=== PATIENT | male | born 1960 | race Caucasian/White ===

== ENCOUNTER → 2019-01-25 | Outpatient (CLI) | payer OTHER ==
--- NOTE | 2019-01-25 22:26 | XR ---
EXAMINATION TYPE: XR lumbar spine 2 or 3V DATE OF EXAM: 01/25/2019 CLINICAL HISTORY: Low back pain for few months. TECHNIQUE: Frontal and lateral images of the lumbar spine are obtained. COMPARISON: None FINDINGS: There are 5 lumbar type vertebral bodies identified. The lumbar spine shows levoconvex sc oliotic curvature centered at L3 level without evidence of acute fracture or dislocation. There is mu ltilevel spondylolisthesis or subtle retrolisthesis of L1 on L2, L2 on L3, and L3 on L4. Vertebral renee dy heights appear within normal limits. There is mild multilevel disc space narrowing with relative s paring of L4-L5 level. There is more moderate disc space narrowing L5-S1 level. There is mild to mode rate multilevel anterior and lateral spurring in the lumbar spine. More prominent advanced anterior s purring is seen in the thoracolumbar junction. There is facet arthropathy in the lower lumbar levels. Some early vascular calcification of overlying abdominal aorta is noted. IMPRESSION: As above.
== END | disposition home or self-care (01) ==
LOC: RADXRMAIN 17:31
PROVIDERS: ATTEND Family Medicine
DX: M48.061 Spinal stenosis, lumbar region without neurogenic claudication (principal); M48.07 Spinal stenosis, lumbosacral region; M43.16 Spondylolisthesis, lumbar region; M46.96 Unspecified inflammatory spondylopathy, lumbar region; M41.86 Other forms of scoliosis, lumbar region
CPT/HCPCS: 72100

== ENCOUNTER 2019-03-30 07:56 | Emergency (ER) | payer OTHER ==
[2019-03-30 08:01] VITALS: PULSE 64; RESP 18; TEMP 98.4
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
[2019-03-30] MEDS ORDERED: ACET/COD 300 MG/30 MG STARTER PACK 6 TAB BTL PO STA (08:14)
[2019-03-30 08:35] VITALS: BP 174/95
== END 2019-03-30 08:45 | disposition home or self-care (01) ==
LOC: EC 07:56
DX: M54.41 Lumbago with sciatica, right side (principal)
CPT/HCPCS: 99283

== ENCOUNTER 2019-04-01 09:24 | Emergency (ER) | payer OTHER ==
[2019-04-01 09:33] VITALS: BP 176/102; PULSE 90; RESP 18; TEMP 97.4
[2019-04-01] MEDS ORDERED: KETOROLAC 30 MG/ML 1 ML VIAL IM STA (09:54)
[2019-04-01] MEDS ORDERED: methylPREDNISolone SOD SUCCI 125 MG/2 ML VIAL IM ONE (09:54)
--- NOTE | 2019-04-01 10:10 | ED ---
General Adult HPI - General Chief complaint: Back Pain/Injury Stated complaint: Leg Pain/Numbness Time Seen by Provider: 04/01/19 09:34 Source: patient, RN notes reviewed Mode of arrival: ambulatory Limitations: no limitations - History of Present Illness Initial comments: 58-year-old male presents to the emergency department for a chief complaint of right lower extremity pain and numbness. Patient states he has been dealing with right-sided sciatic pain for several months. Patient states that this pain started in his right buttock and shoots all the way down to his right foot. Patient states that he missed his physical therapy twice this week because he had a rash and so a few days ago this pain is worsened. Patient now has paresthesias and tingling in the right lower extremity inferior to the right knee. Patient states his knee felt was really give hour earlier today. Patient denies any bladder or bowel changes. Denies any saddle anesthesia.Patient has no other complaints at this time including shortness of breath, chest pain, abdominal pain, nausea or vomiting, headache, or visual changes. - Related Data Home Medications Medication Instructions Recorded Confirmed Acetaminophen-Codeine 300-30mg 1 tab PO ONCE PRN 04/01/19 04/01/19 [Tylenol w/codeine #3] Ibuprofen [Motrin] 600 mg PO Q8HR PRN 04/01/19 04/01/19 tiZANidine [Zanaflex] 4 mg PO HS PRN 04/01/19 04/01/19 Previous Rx's Medication Instructions Recorded predniSONE 50 mg PO DAILY #5 tablet 04/01/19 Allergies Allergy/AdvReac Type Severity Reaction Status Date / Time No Known Allergies Allergy Verified 04/01/19 10:00 Review of Systems ROS Statement: Those systems with pertinent positive or pertinent negative responses have been documented in the HPI. ROS Other: All systems not noted in ROS Statement are negative. Past Medical History Additional Past Medical History / Comment(s): chronic back pain History of Any Multi-Drug Resistant Organisms: None Reported Past Surgical History: No Surgical Hx Reported Past Psychological History: No Psychological Hx Reported Smoking Status: Never smoker Past Alcohol Use History: None Reported Past Drug Use History: None Reported General Exam Limitations: no limitations General appearance: alert, in no apparent distress Head exam: Present: atraumatic, normocephalic, normal inspection Eye exam: Present: normal appearance, PERRL, EOMI. Absent: scleral icterus, conjunctival injection, periorbital swelling ENT exam: Present: normal exam, mucous membranes moist Neck exam: Present: normal inspection, full ROM. Absent: tenderness, meningismus, lymphadenopathy Respiratory exam: Present: normal lung sounds bilaterally. Absent: respiratory distress, wheezes, rales, rhonchi, stridor Cardiovascular Exam: Present: regular rate, normal rhythm, normal heart sounds. Absent: systolic murmur, diastolic murmur, rubs, gallop, clicks GI/Abdominal exam: Present: soft, normal bowel sounds. Absent: distended, ten derness, guarding, rebound, rigid Extremities exam: Present: full ROM (Full range of motion of the right lower extremity), normal capillary refill (Capillary refill less than 2 seconds, DP pulse 2+ in the right lower extremity and equal to the left lower extremity.), other (Normal color noted in the right leg. Sensation intact in the right lower extremity. Strength 5 out of 5 in lower extremities bilaterally). Absent: tenderness, pedal edema, joint swelling, calf tenderness (Negative Homans sign, no tenderness noted in the right calf) Neurological exam: Present: alert, oriented X3, CN II-XII intact Psychiatric exam: Present: normal affect, normal mood Course Vital Signs 04/01/19 09:27 Temperature 97.4 F L Pulse Rate 90 Respiratory 18 Rate Blood Pressure 176/102 O2 Sat by Pulse 98 Oximetry Medical Decision Making - Medical Decision Making 58-year-old male presents to the emergency department for chief complaint of abdominal pain. States this has been ongoing for quite some time. However it is worsening after he did not do physical therapy this week. States he now has tingling below the right knee. Patient is ambulatory. On exam neuro deficits is intact. Patient has intact sensation and strength is [address] of the lumbar spine does show varying degrees of central canal compromise most marked at L4 to L5. Patient denies any saddle anesthesia or changes in bladder or renee wel function. At this time patient can follow up outpatient hydrated urgent him to follow-up earlier than his scheduled appointment if possible. I discussed returning if he has any saddle anesthesia or bladder or bowel changes. Discussed returning if he is unable to ambulate., patient will be given steroids. Discussed with Hallie. CT lumbar spine does show diffuse degenerative disc disease and hypertrophic spondylosis. There is moderate facet arthropathy. There is multilevel intervertebral for amine all narrowing in varying degrees of central canal compromise most marked at L4-L5. Was not aware repeat vitals were not recorded. Disposition Clinical Impression: Central stenosis of spinal canal, Sciatica Disposition: HOME SELF-CARE Condition: Good Instructions (If sedation given, give patient instructions): Sciatica (ED), Lower Back Exercises (ED) Additional Instructions: Please take steroids as directed. Please follow-up with primary care in 1-2 days. Follow-up with orthopedics as soon as possible. Return here to the emergency department if you having any numbness of your groin or buttock, changes in bladder or bowel movements such as difficulty urinating, or difficulty walking. Prescriptions: predniSONE 50 mg PO DAILY #5 tablet Is patient prescribed a controlled substance at d/c from ED?: No Referrals: Zeb Diaz MD [Primary Care Provider] - 1-2 days Ollie Vega DO [Doctor of Osteopathic Medicine] - 1-2 days Time of Disposition: 11:04
--- NOTE | 2019-04-01 10:27 | CT ---
EXAMINATION TYPE: CT lumbar spine wo con DATE OF EXAM: 04/01/2019 10:18 AM COMPARISON: None. HISTORY: Low back pain CT DLP: 671.9 mGycm Automated exposure control for dose reduction was used. Unenhanced CT of the lumbar spine was performed. Bone and soft tissue window settings are submitted as well as coronal and sagittal reconstructions. FINDINGS: Visualized portions of the lungs are clear. There is mild atheromatous calcification of the visualized arterial tree. Paraspinal soft tissues are otherwise normal. There is a mild levoscoliosis. There is a grade 1 degenerative antegrade listhesis of L4 and L5 and a retrograde listhesis of L2 on L3 and L3 on L4. There is diffuse disc space loss and mild hypertrophi c spondylosis throughout the lumbar spine. There is a vacuum phenomena present at L5-S1. T12-L1, there is mild right-sided intervertebral foraminal narrowing. There is no significant romina sive discopathy. There is mild degenerative changes in the facets. L1-L2: Is disc space loss and hypertrophic spondylosis both anteriorly and posteriorly. Intervertebra l foramina are reasonably well-maintained. There is a diffuse disc displacement effacing the thecal s ac. There is mild hypertrophic change in the facets. L2-L3: The intervertebral foramina are well maintained. There is a broad-based disc protrusion. This hypertrophic changes in the facets. There is moderate central canal stenosis. L3-L4: The intervertebral foramina appear well maintained. There is a diffuse disc displacement. This hypertrophic changes in the facets. There is moderate central canal compromise. L4-L5: There is severe right-sided intervertebral foraminal narrowing and less severe foraminal narro wing on the left. There is a grade 1 degenerative spondylolisthesis of L4 and L5. There is a small ps eudodisc. There are severe degenerative changes in the facets. There is moderate to severe central ca nal compromise. L5-S1: There is disc space loss and a vacuum phenomena present. There is bilateral intervertebral for aminal narrowing. There is no significant compressive discopathy. This hypertrophic changes in the fa cets. IMPRESSION: 1. DIFFUSE DEGENERATIVE DISC DISEASE AND HYPERTROPHIC SPONDYLOSIS. 2. MODERATE FACET ARTHROPATHY MOST MARKED AT L4-5. 3. MULTILEVEL INTERVERTEBRAL FORAMINAL NARROWING. 4. VARYING DEGREES OF CENTRAL CANAL COMPROMISE MOST MARKED AT L4-5.
[2019-04-01] MEDS ORDERED: DIPH,PERTUS(ACELL)TETVAC-LF 0.5 ML VIAL IM ONE (11:26)
== END 2019-04-01 11:15 | disposition home or self-care (01) ==
LOC: EC 09:24
DX: M48.061 Spinal stenosis, lumbar region without neurogenic claudication (principal); M47.896 Other spondylosis, lumbar region; M51.16 Intervertebral disc disorders with radiculopathy, lumbar region; G89.29 Other chronic pain
CPT/HCPCS: 72131; 99284; 96372 ×2; J2930; J1885

== ENCOUNTER 2019-08-07 10:10 | Day surgery (SDC) | payer OTHER ==
[2019-08-04 08:21] VITALS: BMI 29.2
[~2019-08-07 10:10] MED LIST: LACTATED RINGERS 1,000 ML IV SCH; LIDOCAINE 1% 20 ML VIAL (10MG/ML) FOR IV START INTRADERMA PRN
[2019-08-07 10:34] VITALS: RESP 16; TEMP 97.6
[2019-08-07] MEDS ORDERED: MIDAZOLAM 2 MG/2 ML VIAL ONE (10:57)
[2019-08-07] MEDS ORDERED: PROPOFOL 10 MG/ML 20 ML VIAL IV ONE (10:57)
--- NOTE | 2019-08-07 11:04 | P.GSHP ---
History of Present Illness H&P Date: 08/07/19 Chief Complaint: Screening colonoscopy This a 59-year-old male who presents today for screening colonoscopy. Patient denies any significant GI complaints. Past Medical History Past Medical History: Hyperlipidemia, Osteoarthritis (OA) Additional Past Medical History / Comment(s): chronic back pain, History of Any Multi-Drug Resistant Organisms: None Reported Past Surgical History: Tonsillectomy Additional Past Surgical History / Comment(s): pain clinic procedure Past Anesthesia/Blood Transfusion Reactions: No Reported Reaction Smoking Status: Former smoker - Past Family History Daughter(s) Family Medical History: Cancer Medications and Allergies Home Medications Medication Instructions Recorded Confirmed Type Ibuprofen [Motrin] 600 mg PO Q8HR PRN 04/01/19 08/04/19 History Gabapentin [Neurontin] 100 mg PO BID 08/04/19 08/07/19 History Allergies Allergy/AdvReac Type Severity Reaction Status Date / Time No Known Allergies Allergy Verified 08/07/19 10:19 Surgical - Exam Vital Signs Temp Pulse Resp BP Pulse Ox 97.6 F 71 16 131/80 96 08/07/19 10:22 08/07/19 10:22 08/07/19 10:22 08/07/19 10:22 08/07/19 10:22 - General well developed, well nourished, no distress - Eyes PERRL - ENT normal pinna - Neck no masses - Respiratory normal expansion - Cardiovascular Rhythm: regular - Abdomen Abdomen: soft, non tender Assessment and Plan Assessment: We'll perform screening colonoscopy.
--- NOTE | 2019-08-07 11:12 | P.OP ---
Date of Procedure: 08/07/19 Preoperative Diagnosis: Screening colonoscopy Postoperative Diagnosis: Normal colonoscopy Procedure(s) Performed: Colonoscopy Anesthesia: MAC Surgeon: Matt Banda Pathology: none sent Condition: stable Disposition: PACU Description of Procedure: Normal colonoscopy
[2019-08-07 11:38] VITALS: BP 129/80; PULSE 63
== END 2019-08-07 11:50 | disposition home or self-care (01) ==
LOC: ORWHC2ENDO 10:10
PROVIDERS: ATTEND Surgery
DX: Z12.11 Encounter for screening for malignant neoplasm of colon (principal); E78.5 Hyperlipidemia, unspecified; M19.90 Unspecified osteoarthritis, unspecified site; Z87.891 Personal history of nicotine dependence; Z79.1 Long term (current) use of non-steroidal anti-inflammatories (NSAID); Z79.899 Other long term (current) drug therapy; G89.29 Other chronic pain; M54.9 Dorsalgia, unspecified
CPT/HCPCS: J2250; J2704; G0121

== ENCOUNTER → 2019-11-28 | Outpatient (CLI) | payer BC ==
[~2019-11-28] MED LIST changes: -LACTATED RINGERS 1,000 ML IV SCH; -LIDOCAINE 1% 20 ML VIAL (10MG/ML) FOR IV START INTRADERMA PRN; +REGADENOSON 0.4 MG/5 ML SYRINGE IV ONE
--- NOTE | 2019-11-28 13:00 | NM ---
EXAMINATION TYPE: NM stress lexiscan cardiolite DATE OF EXAM: 11/28/2019 COMPARISON: NONE HISTORY: Abnormal EKG. TECHNIQUE: After the intravenous administration of 9.89 mCi Tc 99m Sestamibi - Cardiolite resting SP ECT images acquired 75 minutes post injection. The patient received 0.4mg Lexiscan, 27.2 mCi Tc 99m Sestamibi - Stress images obtained [address] injection FINDINGS: Review of stress and rest SPECT images demonstrates no distinct perfusion abnormality. Basilar sayda septal wall defect is greater on rest than stress imaging and is artifactual. Gated analysis shows n ormal wall motion with an estimated left ventricular ejection fraction of 68 %. TID is within normal limits measured at 1.0. IMPRESSION: No scintigraphic evidence for reversible ischemia.
--- NOTE | 2019-11-28 14:18 | EST ---
EXERCISE STRESS AGE: 59 SEX: M HT: 68" WT: 192 PROTOCOL: Lexiscan Cardiolite Stress Test HEART RATE REST: 67 BLOOD PRESSURE REST: 132/78 MAXIMUM HEART RATE ACHIEVED: 76 MAXIMUM BLOOD PRESSURE: 125/71 85% MPHR: 138 100% MPHR: 162 INDICATIONS: Abnormal EKG CLINICAL INFORMATION: Lexiscan nuclear study was performed, peak heart rate of 76 was achieved. Maximum blood pressure of 125/71 mmHg was noted. Resting EKG shows normal sinus rhythm with normal MI interval and QRS duration and normal ST-T waves. No ST-segment depression suggestive of ischemia is noted. The results of the nuclear study will follow. MMODL / IJN: [id number] /
== END | disposition home or self-care (01) ==
LOC: RADNMMAIN 08:09
PROVIDERS: ATTEND Family Medicine
DX: R94.31 Abnormal electrocardiogram [ECG] [EKG] (principal)
CPT/HCPCS: 93017; 78452; A9500; J2785

== ENCOUNTER 2021-04-03 09:26 | Day surgery (SDC) | payer BC, OTHER ==
[2021-04-01 10:21] VITALS: BMI 29.2
[~2021-04-03 09:26] MED LIST changes: +LACTATED RINGERS 1,000 ML IV SCH; +LIDOCAINE 1% (10MG/ML) FOR IV START INTRADERMA PRN; -REGADENOSON 0.4 MG/5 ML SYRINGE IV ONE
[2021-04-03 09:55] VITALS: RESP 16; TEMP 97.3
[2021-04-03] MEDS ORDERED: MIDAZOLAM 2 MG/2 ML VIAL ONE (10:50)
[2021-04-03] MEDS ORDERED: fentaNYL (PF) 50 MCG/ML 2 ML AMP ONE (10:50)
[2021-04-03] MEDS ORDERED: PROPOFOL 10 MG/ML 20 ML VIAL IV ONE (10:50)
--- NOTE | 2021-04-03 10:56 | P.GSHP ---
History of Present Illness H&P Date: 04/03/21 Chief Complaint: Anemia Is a 58-year-old male history of anemia. She has a history of black tarry stools. 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 Past Medical History Past Medical History: GERD/Reflux, Hypertension, Osteoarthritis (OA) Additional Past Medical History / Comment(s): chronic back pain, anemia History of Any Multi-Drug Resistant Organisms: None Reported Past Surgical History: Tonsillectomy Additional Past Surgical History / Comment(s): pain clinic procedure, colonoscopy Past Anesthesia/Blood Transfusion Reactions: No Reported Reaction Smoking Status: Former smoker - Past Family History Daughter(s) Family Medical History: Cancer Medications and Allergies Home Medications Medication Instructions Recorded Confirmed Type Gabapentin [Neurontin] 300 mg PO DAILY 04/01/21 04/01/21 History Meloxicam 15 mg PO DAILY 04/01/21 04/01/21 History lisinopriL [Zestril] 20 mg PO QAM 04/01/21 04/01/21 History Allergies Allergy/AdvReac Type Severity Reaction Status Date / Time No Known Allergies Allergy Verified 04/03/21 09:48 Surgical - Exam Vital Signs Temp Pulse Resp BP Pulse Ox 97.3 F L 64 16 163/74 97 04/03/21 09:51 04/03/21 09:51 04/03/21 09:51 04/03/21 09:51 04/03/21 09:51 - General well developed, well nourished, no distress - Eyes PERRL - ENT normal pinna - Neck no masses - Respiratory normal expansion - Cardiovascular Rhythm: regular - Abdomen Abdomen: soft, non tender Assessment and Plan Assessment: Anemia, melena, we'll perform EGD.
--- NOTE | 2021-04-03 11:04 | P.OP ---
Date of Procedure: 04/03/21 Preoperative Diagnosis: Anemia GI bleed Postoperative Diagnosis: Antral gastritis No evidence of upper GI bleed Procedure(s) Performed: EGD Anesthesia: MAC Surgeon: Matt Banda Pathology: other (Antrum) Condition: stable Disposition: PACU Description of Procedure: The patient's placed on the endoscopy table in the lateral position. He received IV sedation. The gastro-/oropharynx passed in the esophagus into the stomach. Scope was then placed through the pylorus. The first and second portion of the duodenum appeared normal. Scope was then brought back the antrum this was mildly inflamed. A biopsies performed. Scope was unretroflexed and remainder of the stomach appeared normal. The GE junction was at 47 is. The distal esophagus appeared mildly inflamed. A biopsies performed. The proximal esophagus appeared normal. The scope was withdrawn for patient.
[2021-04-03 11:23] VITALS: PULSE 66
[2021-04-03 11:52] VITALS: BP 114/63
[2021-04-03 12:06] LABS: Basophils % (A) 1 %; Eosinophils # (A) 0.4 k/uL (0-0.7); Eosinophils % (A) 6 %; HCT 38.3 % (39.0-53.0); HGB 13.7 gm/dL (13.0-17.5); Lymphocytes # (A) 1.4 k/uL (1.0-4.8); Lymphocytes % (A) 24 %; MCHC 35.8 g/dL (31.0-37.0); MCV 92.3 fL (80.0-100.0); Mean Platelet Volume 7.3; Monocytes # (A) 0.3 k/uL (0-1.0); Monocytes % (A) 6 %; Neutrophils # (A) 3.6 k/uL (1.3-7.7); Neutrophils % (A) 62 %; Platelet Count 152 k/uL (150-450); RBC 4.15 m/uL (4.30-5.90); RDW 12.5 % (11.5-15.5); WBC 5.8 k/uL (3.8-10.6)
== END 2021-04-03 12:05 | disposition home or self-care (01) ==
LOC: ORWHC2ENDO 09:26
PROVIDERS: ATTEND Surgery
DX: K29.50 Unspecified chronic gastritis without bleeding (principal); Z79.899 Other long term (current) drug therapy; I10 Essential (primary) hypertension; D64.9 Anemia, unspecified; M54.9 Dorsalgia, unspecified; Z87.891 Personal history of nicotine dependence; Z98.890 Other specified postprocedural states; K92.1 Melena
CPT/HCPCS: 88305; 85025; 43239; J2250; J3010; J2704

== ENCOUNTER → 2021-04-08 | Outpatient (CLI) | payer OTHER ==
--- NOTE | 2021-04-08 08:26 | CT ---
EXAMINATION TYPE: CT thoracic spine wo con DATE OF EXAM: 04/08/2021 COMPARISON: 04/01/2019 HISTORY: Pre Op stimulator placement per patient. CT DLP: 1046.[address] of the thoracic spine was performed. Bone and soft tissue window settings are submitte d as well as coronal and sagittal reconstructions. There is mild multilevel degenerative disc space narrowing and spondylosis. There is no evidence for disc herniation or protrusion. No central stenosis is identified. Thoracic segments are intact. No ev idence for fracture or malalignment. No paraspinal mass identified. IMPRESSION: 1. Degenerative changes as noted.
== END | disposition home or self-care (01) ==
LOC: RADCTMAIN 07:04
PROVIDERS: ATTEND Physical Medicine & Rehabilitation
DX: M47.814 Spondylosis without myelopathy or radiculopathy, thoracic region (principal); M51.34 Other intervertebral disc degeneration, thoracic region
CPT/HCPCS: 72128

== ENCOUNTER → 2021-04-22 | Outpatient (CLI) | payer OTHER ==
--- NOTE | 2021-04-22 09:57 | CTL ---
EXAMINATION TYPE: CT Low Dose Lung DATE OF EXAM ORDERED: 04/22/2021 HISTORY: 60-year-old male Personal history of nicotine dependence. Lung cancer screening CT DLP: 111.[address] CTDI: 3.30 mGy Automated exposure control for dose reduction was used. SCREENING VISIT: Baseline COMPARISON: None TECHNIQUE: Low dose computed tomography scan was performed through the chest coronal and sagittal rec onstructions performed. Additional coronal MIP reconstructions generated. CT DIAGNOSTIC QUALITY: Satisfactory FINDINGS: Heart normal size without pericardial effusion. Aorta normal caliber with conventional arch vessel branching anatomy. No thoracic lymphadenopathy by CT size criteria. Mild diffuse bronchial wall thickening. Minimal biapical pleural parenchymal scarring. Tiny 3 mm likely calcified pulmonary nodule posterior right midlung, axial image 190. Tiny 3 mm lateral left upper lobe pulmonary nodule, axial image C7 No suspicious pulmonary nodules or masses. No consolidation or pleural effusion. Visualized upper abdomen suggest mild fatty infiltration of the liver. Bones: Old healed right-sided rib fracture deformity of the second rib. Some degenerative change in b oth shoulders. IMPRESSION: 1. LungRADS 2, Benign; a couple tiny 3 mm bony nodules at baseline. 2. Mild diffuse bronchial wall thickening suggest bronchitis or chronic asthma. 3. Possible mild hepatic steatosis. CT LUNG RAD AND CT CHEST RECOMMENDATION: Lung-Rad 2 Benign Appearance or Behavior: Continue annual sc reening with LDCT in 12 months.
== END | disposition home or self-care (01) ==
LOC: RADCTMAIN 07:29
PROVIDERS: ATTEND Family Medicine
DX: Z12.2 Encounter for screening for malignant neoplasm of respiratory organs (principal); R91.8 Other nonspecific abnormal finding of lung field; J98.09 Other diseases of bronchus, not elsewhere classified
CPT/HCPCS: 71271

== ENCOUNTER → 2021-04-25 | Outpatient (CLI) | payer OTHER ==
--- NOTE | 2021-04-25 13:27 | XR ---
EXAMINATION TYPE: XR chest 2V DATE OF EXAM: 04/25/2021 COMPARISON: CT low-dose chest 04/22/2021 HISTORY: 60-year-old male J44.9, COPD TECHNIQUE: Frontal and lateral views FINDINGS: Heart normal size. Aorta and pulmonary vasculature within normal limits. Mild hyperinflation. Mild in terstitial prominence without consolidation or pleural effusion. Healed right anterolateral second ri b fracture deformity. IMPRESSION: Interstitial prominence and mild hyperinflation suggests underlying COPD. No acute process seen.
== END ==
LOC: RADXRMAIN 10:05
PROVIDERS: ATTEND Family Medicine
DX: J44.9 Chronic obstructive pulmonary disease, unspecified (principal)
CPT/HCPCS: 71046

== ENCOUNTER 2021-12-02 15:59 | Emergency (ER) | payer MEDICARE, OTHER ==
[2021-12-02 18:04] VITALS: BP 143/76; PULSE 111; RESP 20; TEMP 102.7
[2021-12-02] MEDS ORDERED: ACETAMINOPHEN TAB 500 MG TAB PO STA (18:25)
[2021-12-02] MEDS ORDERED: IBUPROFEN 800 MG TAB PO STA (18:51)
--- NOTE | 2021-12-02 18:57 | ED ---
General Adult HPI - General Chief complaint: Fever Stated complaint: headache Time Seen by Provider: 12/02/21 18:40 Source: patient, family, RN notes reviewed, old records reviewed Mode of arrival: ambulatory Limitations: no limitations - History of Present Illness Initial comments: This is a well-appearing 61-year-old male that presents to the emergency room with complaints of fever chills and headache since yesterday. He is concerned he may have Covid. He states that his tested positive for coronavirus. He does arrive with temperature of 102. He is a nonsmoker. -: days(s) (2) Location: head Severity scale (1-10): 8 Quality: aching Consistency: constant Associated Symptoms: fever/chills, headaches, other (diarrhea) - Related Data Home Medications Medication Instructions Recorded Confirmed Gabapentin [Neurontin] 300 mg PO DAILY 04/01/21 04/01/21 Meloxicam 15 mg PO DAILY 04/01/21 04/01/21 lisinopriL [Zestril] 20 mg PO QAM 04/01/21 04/01/21 Allergies Allergy/AdvReac Type Severity Reaction Status Date / Time No Known Allergies Allergy Verified 12/02/21 18:03 Review of Systems ROS Statement: Those systems with pertinent positive or pertinent negative responses have been documented in the HPI. ROS Other: All systems not noted in ROS Statement are negative. Past Medical History Past Medical History: GERD/Reflux, Hypertension, Osteoarthritis (OA) Additional Past Medical History / Comment(s): chronic back pain, anemia History of Any Multi-Drug Resistant Organisms: None Reported Past Surgical History: Tonsillectomy Additional Past Surgical History / Comment(s): pain clinic procedure, colonoscopy, nerve stimulator in back Past Anesthesia/Blood Transfusion Reactions: No Reported Reaction Past Psychological History: No Psychological Hx Reported Smoking Status: Former smoker Past Alcohol Use History: Occasional Past Drug Use History: None Reported - Past Family History Daughter(s) Family Medical History: Cancer General Exam Limitations: no limitations General appearance: alert, in no apparent distress Head exam: Present: atraumatic, normocephalic, normal inspection Eye exam: Present: normal appearance, EOMI. Absent: scleral icterus, conjunctival injection ENT exam: Present: normal exam, normal oropharynx, mucous membranes moist Neck exam: Present: normal inspection, full ROM. Absent: tenderness, meningismus, lymphadenopathy, thyromegaly Respiratory exam: Present: normal lung sounds bilaterally. Absent: respiratory distress, wheezes, rales, rhonchi, stridor, chest wall tenderness, accessory muscle use Cardiovascular Exam: Present: tachycardia, normal heart sounds. Absent: JVD GI/Abdominal exam: Present: soft, normal bowel sounds. Absent: distended, te nderness, guarding, rebound, rigid Extremities exam: Present: normal capillary refill. Absent: pedal edema Neurological exam: Present: alert, oriented X3, normal gait Psychiatric exam: Present: normal affect, normal mood Skin exam: Present: warm, dry, intact, normal color. Absent: rash, cyanosis, diaphoretic Course Vital Signs 12/02/21 18:00 Temperature 102.7 F H Pulse Rate 111 H Respiratory 20 Rate Blood Pressure 143/76 O2 Sat by Pulse 96 Oximetry Medical Decision Making - Medical Decision Making Well-appearing 61-year-old male presents to the emergency room with fever and headaches and diarrhea since yesterday. He states that his has Covid. He is positive for coronavirus. Son is with him today also positive for coronavirus. He does not meet criteria for monoclonal antibodies infusion. He was given Tylenol for his fever in the emergency room. His oxygen saturation in 96% on room air. He was instructed to continue with vitamin C, vitamin D and zinc, Tylenol as needed for body aches and fevers. Increase fluid intake and return to the emergency with any new or concerning symptoms. My attending is Dr. Foster - Lab Data Lab Results 12/02/21 Range/Units 18:05 Coronavirus (PCR) Detected A (Not Detectd) Disposition Clinical Impression: COVID-19 Disposition: HOME SELF-CARE Condition: Good Instructions (If sedation given, give patient instructions): Coronavirus Disease 2019 (COVID-19) Additional Instructions: Self quarantine for 10 days from symptom onset. If no symptoms after 5 days you can go into public with just a mask. Take vitamin C, vitamin D and zinc for immune health. Increase your fluid intake. Tylenol as needed for fevers or body aches. Return to emergency room with any new or concerning symptoms. Is patient prescribed a controlled substance at d/c from ED?: No Referrals: Zeb Diaz MD [Primary Care Provider] - 1-2 days Time of Disposition: 18:56
== END 2021-12-02 19:12 | disposition home or self-care (01) ==
LOC: EC 15:59
DX: U07.1 COVID-19 (principal); I10 Essential (primary) hypertension; K21.9 Gastro-esophageal reflux disease without esophagitis; M19.90 Unspecified osteoarthritis, unspecified site; Z79.1 Long term (current) use of non-steroidal anti-inflammatories (NSAID); Z79.899 Other long term (current) drug therapy; Z87.891 Personal history of nicotine dependence
CPT/HCPCS: 87635; 99284

== ENCOUNTER 2022-04-30 08:20 | Day surgery (SDC) | payer MEDICARE, OTHER ==
[2022-04-28 12:51] VITALS: BMI 29.0
[2022-04-30] MEDS ORDERED: LACTATED RINGERS 1,000 ML IV SCH (08:35)
[2022-04-30 08:38] VITALS: TEMP 97
[2022-04-30] MEDS ORDERED: LACTATED RINGERS 1,000 ML IV ONE (08:39)
[2022-04-30] MEDS ORDERED: PROPOFOL 10 MG/ML 20 ML VIAL IV ONE (09:20)
[2022-04-30] MEDS ORDERED: LIDOCAINE 2% INJ 20 MG/ML (2 ML VIAL) ONE (09:20)
--- NOTE | 2022-04-30 09:22 | P.GSHP ---
History of Present Illness H&P Date: 04/30/22 Chief Complaint: Anemia, GI bleed This a 7-year-old male presents today for EGD colonoscopy patient was worked up for anemia GI bleed. Past Medical History Past Medical History: GERD/Reflux, Hyperlipidemia, Hypertension, Osteoarthritis (OA) Additional Past Medical History / Comment(s): Chronic back pain, anemia, "Borderline Diabetic." History of Any Multi-Drug Resistant Organisms: None Reported Past Surgical History: Tonsillectomy Additional Past Surgical History / Comment(s): Pain clinic procedure, colonoscopy, nerve stimulator in back. Past Anesthesia/Blood Transfusion Reactions: No Reported Reaction Past Psychological History: No Psychological Hx Reported Smoking Status: Former smoker Past Alcohol Use History: Occasional Additional Past Alcohol Use History / Comment(s): Quit smoking in 2017, smoked for 30 yrs, 1 PPD. Past Drug Use History: None Reported - Past Family History Daughter(s) Family Medical History: Cancer Medications and Allergies Home Medications Medication Instructions Recorded Confirmed Type Gabapentin [Neurontin] 300 mg PO QAM 04/01/21 04/28/22 History Meloxicam 15 mg PO DAILY 04/01/21 04/28/22 History lisinopriL [Zestril] 20 mg PO QAM 04/01/21 04/28/22 History Atorvastatin [Lipitor] 20 mg PO DAILY 04/28/22 04/28/22 History Ezetimibe [Zetia] 10 mg PO DAILY 04/28/22 04/28/22 History Ferrous Sulfate [Feosol] 325 mg PO DAILY 04/28/22 04/28/22 History [place]-3/Dha/Epa/Fish Oil [Fish Oil 1 each PO DAILY 04/28/22 04/28/22 History 1,000 mg Softgel] Vitamin C (Unknown Dose) 1 tab PO DAILY 04/28/22 04/28/22 History Vitamin D (Unknown Dose) 1 tab PO DAILY 04/28/22 04/28/22 History Vitamin E (Unknown Dose) 1 tab PO DAILY 04/28/22 04/28/22 History Zinc 50 mg PO DAILY 04/28/22 04/28/22 History Allergies Allergy/AdvReac Type Severity Reaction Status Date / Time No Known Allergies Allergy Verified 04/28/22 12:28 Surgical - Exam Vital Signs Temp Pulse Resp BP Pulse Ox 97 F L 72 18 126/90 96 04/30/22 08:37 04/30/22 08:37 04/30/22 08:37 04/30/22 08:37 04/30/22 08:37 - General well developed, well nourished, no distress - Eyes PERRL - ENT normal pinna - Neck no masses - Respiratory normal expansion - Cardiovascular Rhythm: regular - Abdomen Abdomen: soft, non tender Assessment and Plan Assessment: Anemia, GI bleed. We'll perform EGD and colonoscopy.
--- NOTE | 2022-04-30 09:38 | P.OP ---
Date of Procedure: 04/30/22 Preoperative Diagnosis: Anemia GI bleed Postoperative Diagnosis: Antral gastritis Procedure(s) Performed: EGD Colonoscopy Anesthesia: MAC Surgeon: Matt Banda Pathology: other (Antrum) Condition: stable Disposition: PACU Description of Procedure: Patient's placed on the endoscopy table in the lateral position. He received IV sedation. The gastro-/oropharynx passed in the esophagus into the stomach. Scope then placed through the pylorus. The first and second portion of the duodenum appeared normal. The scope summer back the antrum was minimally inflamed. A biopsies performed. Scope was unretroflexed and remainder stomach appeared normal. There was no significant hiatal hernia. The GE junction was at 40 cm. The distal esophagus was normal. The proximal esophagus was normal. Scope was then withdrawn from the patient. Next, digital rectal exam was performed. This revealed no abnormalities. Flexible colonoscope was then placed patient anus and passed throughout the entire colon. Ileocecal valve was visualized. Cecum, ascending and transverse colon appeared normal. In the descending and sigmoid colon there was mild diverticular changes. Scope was brought back the rectum. This appeared normal. There is no evidence of any significant GI bleed. The patient may have had some gastritis. But no bleeding was seen.
[2022-04-30 09:42] VITALS: RESP 16
[2022-04-30 10:12] VITALS: BP 150/88; PULSE 64
== END 2022-04-30 10:41 | disposition home or self-care (01) ==
LOC: ORWHC2ENDO 08:20
PROVIDERS: ATTEND Surgery
DX: D64.9 Anemia, unspecified (principal); K29.51 Unspecified chronic gastritis with bleeding; K21.9 Gastro-esophageal reflux disease without esophagitis; K57.31 Diverticulosis of large intestine without perforation or abscess with bleeding; E78.5 Hyperlipidemia, unspecified; I10 Essential (primary) hypertension; M19.90 Unspecified osteoarthritis, unspecified site; G89.29 Other chronic pain; M54.9 Dorsalgia, unspecified; R73.03 Prediabetes; Z79.899 Other long term (current) drug therapy; Z87.891 Personal history of nicotine dependence; Z90.89 Acquired absence of other organs; Z96.82 Presence of neurostimulator
CPT/HCPCS: 88305; 45378; 43239; J2704; J2001

== ENCOUNTER → 2022-11-23 | Outpatient (CLI) | payer MEDICARE, OTHER ==
--- NOTE | 2022-11-24 10:24 | US ---
EXAMINATION TYPE: US venous doppler duplex LE left DATE OF EXAM: 11/23/2022 4:03 PM COMPARISON: NONE CLINICAL HISTORY: 62-year-old male [id number]. pain SIDE PERFORMED: Left TECHNIQUE: The lower extremity deep venous system is examined utilizing real time linear array sonog arsh with graded compression, doppler sonography and color-flow sonography. FINDINGS: VESSELS IMAGED: Common Femoral Vein Deep Femoral Vein Greater Saphenous Vein * Femoral Vein Popliteal Vein Small Saphenous Vein * Proximal Calf Veins (* superficial vessels) Left Leg: Negative for DVT IMPRESSION: No evidence for DVT within the left lower extremity imaged from the groin to the upper calf.
== END | disposition home or self-care (01) ==
LOC: RADUSWWP 15:36
PROVIDERS: ATTEND Family Medicine
DX: I82.402 Acute embolism and thrombosis of unspecified deep veins of left lower extremity (principal)

== ENCOUNTER 2024-03-21 13:44 | Emergency (ER) | payer MEDICARE, OTHER ==
--- NOTE | 2024-03-21 14:41 | ED ---
General Adult HPI - General Chief complaint: Dizziness Stated complaint: Dizziness,SOB Time Seen by Provider: 03/21/24 14:00 Source: patient, RN notes reviewed, old records reviewed Mode of arrival: ambulatory Limitations: no limitations - History of Present Illness Initial comments: This is a 63-year-old male who states he quit smoking 7 years ago. Patient comes in today [place] all [place] a sudden he started having shortness of breath. Patient states that he became lightheaded and just did not feel right. Patient states he thought it sit down it would go away but he continued to feel short of breath and very lightheaded. Patient did not think he was going to pass out but he did feel lightheaded with a mild headache. Patient denies any chest pain. Patient has any fever chills or cough recently. Patient denies any abdominal pain. Patient denies any previous breathing history. Patient denies any diabetes. - Related Data Home Medications Medication Instructions Recorded Confirmed Gabapentin [Neurontin] 300 mg PO DAILY 04/01/21 03/21/24 Meloxicam 15 mg PO DAILY 04/01/21 03/21/24 lisinopriL [Zestril] 20 mg PO DAILY 04/01/21 03/21/24 Atorvastatin [Lipitor] 20 mg PO DAILY 04/28/22 03/21/24 Ezetimibe [Zetia] 10 mg PO DAILY 04/28/22 03/21/24 Ascorbic Acid [Vitamin C] 1,000 mg PO DAILY 03/21/24 03/21/24 Fluticasone/Umeclidin/Vilanter 1 puff INHALATION RT-DAILY 03/21/24 03/21/24 [Trelegy Ellipta 200-62.5-25] Previous Rx's Medication Instructions Recorded Albuterol Inhaler [Ventolin Hfa 1 - 2 puff INHALATION Q6HR PRN #2 03/21/24 Inhaler] each predniSONE [Deltasone] 40 mg PO DAILY #8 tab 03/21/24 Allergies Allergy/AdvReac Type Severity Reaction Status Date / Time No Known Allergies Allergy Verified 03/21/24 14:57 Review of Systems ROS Statement: Those systems with pertinent positive or pertinent negative responses have been documented in the HPI. ROS Other: All systems not noted in ROS Statement are negative. Past Medical History Past Medical History: GERD/Reflux, Hyperlipidemia, Hypertension, Osteoarthritis (OA) Additional Past Medical History / Comment(s): Chronic back pain, anemia, "Borderline Diabetic." History of Any Multi-Drug Resistant Organisms: None Reported Past Surgical History: Tonsillectomy Additional Past Surgical History / Comment(s): Pain clinic procedure, colonoscopy, nerve stimulator in back. Past Anesthesia/Blood Transfusion Reactions: No Reported Reaction Past Psychological History: No Psychological Hx Reported Smoking Status: Former smoker Past Alcohol Use History: Occasional Past Drug Use History: None Reported - Past Family History Daughter(s) Family Medical History: Cancer General Exam - General Exam Comments Initial Comments: GENERAL: Patient is well-developed and well-nourished. Patient is nontoxic and well- hydrated and is in mild distress. ENT: Neck is soft and supple. No significant lymphadenopathy is noted. Oropharynx is clear. Moist mucous membranes. Neck has full range of motion without eliciting any pain. EYES: The sclera were anicteric and conjunctiva were pink and moist. Extraocular movements were intact and pupils were equal round and reactive to light. Eyelids were unremarkable. PULMONARY: Unlabored respirations. Good breath sounds bilaterally. Slight expiratory wheeze CARDIOVASCULAR: There is a regular rate and rhythm without any murmurs gallops or rubs. ABDOMEN: Soft and nontender with normal bowel sounds. SKIN: Skin is clear with no lesions or rashes and otherwise unremarkable. NEUROLOGIC: Patient is alert and oriented x3. Cranial nerves II through XII are grossly intact. Motor and sensory are also intact. Normal speech, volume and content. Symmetrical smile. MUSCULOSKELETAL: Normal extremities with adequate strength and full range of motion. LYMPHATICS: No significant lymphadenopathy is noted PSYCHIATRIC: Normal psychiatric evaluation. Limitations: no limitations Course Vital Signs 03/21/24 03/21/24 03/21/24 13:56 15:13 15:21 Temperature 99.1 F Pulse Rate 91 84 85 Respiratory 18 Rate Blood Pressure 148/71 O2 Sat by Pulse 97 Oximetry 03/21/24 17:03 Temperature 98.5 F Pulse Rate 85 Respiratory 18 Rate Blood Pressure 146/72 O2 Sat by Pulse 97 Oximetry Medical Decision Making - Medical Decision Making EKG is interpreted by myself EKG shows a sinus rhythm at 86 bpm VA interval 139 QRS 145 QT interval 386 QTc is 430. Patient is a right bundle branch block. Patient has no ST segment elevation there are some slight ST segment depression in V3 Was pt. sent in by a medical professional or institution (TAV[facility] Fernandez, GAS BURNER OPERATOR, urgent care, hospital, or correction...) When possible be specific @ -No Did you speak to anyone other than the patient for history (EMS, parent, family, police, friend...)? What history was obtained from this source @ -No Did you review nursing and triage notes (agree or disagree)? Why? @ -I reviewed and agree with nursing and triage notes Were old charts reviewed (outside hosp., previous admission, EMS record, old EKG, old radiological studies, urgent care reports/EKG's, correction records)? Report findings @ -No old charts were reviewed Differential Diagnosis (chest pain, altered mental status, abdominal pain women, abdominal pain men, vaginal bleeding, weakness, fever, dyspnea, syncope, headache, dizziness, GI bleed, back pain, seizure, CVA, palpatations, mental health, musculoskeletal)? @ -Differential Dyspnea: Coronary syndrome, arrhythmia, tamponade, asthma, COPD, pulmonary embolism, pneumonia, pneumothorax, pulmonary effusion, anaphylaxis, diabetic ketoacidosis, flailed chest, pulmonary contusion, diaphragmatic rupture, anemia, neuromuscular, this is not meant to be an all-inclusive list. EKG interpreted by me (3pts min.). @ -As above X-rays interpreted by me (1pt min.). @ -Chest x-ray shows no acute abnormality CT interpreted by me (1pt min.). @ -CT of the brain shows no acute normality, on [place] of care on this computer U/S interpreted by me (1pt. min.). @ -None done What testing was considered but not performed or refused? (CT, X-rays, U/S, labs)? Why? @ -None What meds were considered but not given or refused? Why? @ -None Did you discuss the management of the patient with other professionals (professionals i.e. TAVO Fernandez, GAS BURNER OPERATOR, lab, RT, psych nurse, health care social worker, leisure studies professor, teacher, alumni relations officer, vocational case manager)? Give summary @ -No Was smoking cessation discussed for >3mins.? @ -No Was critical care preformed (if so, how long)? @ -No Were there social determinants of health that impacted care today? How? (Homelessness, low income, unemployed, alcoholism, drug addiction, transportation, low edu. Level, literacy, decrease access to med. care, longterm, rehab)? @ -No Was there de-escalation of care discussed even if they declined (Discuss DNR or withdrawal of care, Hospice)? DNR status @ -No What co-morbidities impacted this encounter? (DM, HTN, Smoking, COPD, CAD, Cancer, CVA, ARF, Chemo, Hep., AIDS, mental health diagnosis, sleep apnea, morbid obesity)? @ -None Was patient admitted / discharged? Hospital course, mention meds given and route, prescriptions, significant lab abnormalities, going to OR and other pertinent info. @ -Patient was given albuterol treatment he did feel somewhat better however upon discharge patient felt warm psych to the temperature he was 101.7. That was the first time the patient had any fever. This probably explains the patient's lightheadedness headache and the wheezing explains his shortness of br eath. Patient will have a viral swab done but does not want to wait for the results. Patient was given Tylenol Motrin for the fever. Patient was given albuterol inhaler for home and given steroids here and for home. Undiagnosed new problem with uncertain prognosis? @ -No Drug Therapy requiring intensive monitoring for toxicity (Heparin, Nitro, Insulin, Cardizem)? @ -No Were any procedures done? @ -No Diagnosis/symptom? @ -Viral syndrome Acute, or Chronic, or Acute on Chronic? @ -Acute Uncomplicated (without systemic symptoms) or Complicated (systemic symptoms)? @ -Uncomplicated Side effects of treatment? @ -No Exacerbation, Progression, or Severe Exacerbation? @ -No Poses a threat to life or bodily function? How? (Chest pain, [place], [place], pneumonia, PE, COPD, DKA, ARF, appy, cholecystitis, CVA, Diverticulitis, Homicidal, Suicidal, threat to staff... and all critical care pts) @ -No Diagnosis/symptom? @ -Bronchospasms Acute, or Chronic, or Acute on Chronic? @ -Acute Uncomplicated (without systemic symptoms) or Complicated (systemic symptoms)? @ -Complicated Side effects of treatment? @ -None Exacerbation, Progression, or Severe Exacerbation] @ -No Poses a threat to life or bodily function? @ -No - Lab Data Result diagrams: 03/21/24 15:07 05/07/24 15:07 Lab Results 03/21/24 03/21/24 03/21/24 Range/Units 15:07 15:07 15:07 WBC 8.1 (3.8-10.6) k/uL RBC 4.13 L (4.30-5.90) m/uL Hgb 13.4 (13.0-17.5) gm/dL Hct 38.3 L (39.0-53.0) % MCV 92.6 (80.0-100.0) fL MCH 32.4 (25.0-35.0) pg MCHC 35.0 (31.0-37.0) g/dL RDW 13.0 (11.5-15.5) % Plt Count 127 L (150-450) k/uL MPV 7.9 Neutrophils % 92 % Lymphocytes % 3 % Monocytes % 3 % Eosinophils % 2 % Basophils % 0 % Neutrophils # 7.4 (1.3-7.7) k/uL Lymphocytes # 0.3 L (1.0-4.8) k/uL Monocytes # 0.2 (0-1.0) k/uL Eosinophils # 0.1 (0-0.7) k/uL Basophils # 0.0 (0-0.2) k/uL PT 10.9 (10.0-12.5) sec INR 1.0 (<1.2) APTT 23.2 (22.0-30.0) sec D-Dimer 0.48 (<0.60) mg/L FEU Sodium 133 L (137-145) mmol/L Potassium 4.0 (3.5-5.1) mmol/L Chloride 101 (98-107) mmol/L Carbon Dioxide 26 (22-30) mmol/L Anion Gap 6 mmol/L BUN 16 (9-20) mg/dL Creatinine 0.62 L (0.66-1.25) mg/dL Est GFR (CKD-EPI)AfAm >90 (>60 ml/min/1.73 sqM) Est GFR (CKD-EPI)NonAf >90 (>60 ml/min/1.73 sqM) Glucose 106 H (74-99) mg/dL Plasma Lactic Acid [place] (0.7-2.0) mmol/L Calcium 8.9 (8.4-10.2) mg/dL Magnesium 1.7 (1.6-2.3) mg/dL Total Bilirubin 1.0 (0.2-1.3) mg/dL AST 24 (17-59) U/L ALT 33 (4-49) U/L Alkaline Phosphatase 90 (38-126) U/L Troponin I (0.000-0.034) ng/mL NT-Pro-B Natriuret Pep 46 pg/mL Total Protein 6.8 (6.3-8.2) g/dL Albumin 4.2 (3.5-5.0) g/dL 03/21/24 03/21/24 Range/Units 15:07 15:07 WBC (3.8-10.6) k/uL RBC (4.30-5.90) m/uL Hgb (13.0-17.5) gm/dL Hct (39.0-53.0) % MCV (80.0-100.0) fL MCH (25.0-35.0) pg MCHC (31.0-37.0) g/dL RDW (11.5-15.5) % Plt Count (150-450) k/uL MPV Neutrophils % % Lymphocytes % % Monocytes % % Eosinophils % % Basophils % % Neutrophils # (1.3-7.7) k/uL Lymphocytes # (1.0-4.8) k/uL Monocytes # (0-1.0) k/uL Eosinophils # (0-0.7) k/uL Basophils # (0-0.2) k/uL PT (10.0-12.5) sec INR (<1.2) APTT (22.0-30.0) sec D-Dimer (<0.60) mg/L FEU Sodium (137-145) mmol/L Potassium (3.5-5.1) mmol/L Chloride (98-107) mmol/L Carbon Dioxide (22-30) mmol/L Anion Gap mmol/L BUN (9-20) mg/dL Creatinine (0.66-1.25) mg/dL Est GFR (CKD-EPI)AfAm (>60 ml/min/1.73 sqM) Est GFR (CKD-EPI)NonAf (>60 ml/min/1.73 sqM) Glucose (74-99) mg/dL Plasma Lactic Acid [place] 1.7 (0.7-2.0) mmol/L Calcium (8.4-10.2) mg/dL Magnesium (1.6-2.3) mg/dL Total Bilirubin (0.2-1.3) mg/dL AST (17-59) U/L ALT (4-49) U/L Alkaline Phosphatase (38-126) U/L Troponin I <0.012 (0.000-0.034) ng/mL NT-Pro-B Natriuret Pep pg/mL Total Protein (6.3-8.2) g/dL Albumin (3.5-5.0) g/dL Disposition Clinical Impression: Viral syndrome, Acute bronchospasm Disposition: HOME SELF-CARE Condition: Good Instructions (If sedation given, give patient instructions): Bronchospasm (ED) Additional Instructions: Patient is take Motrin and Tylenol as needed for fever Prescriptions: predniSONE [Deltasone] 40 mg PO DAILY #8 tab Albuterol Inhaler [Ventolin Hfa Inhaler] 1 - 2 puff INHALATION Q6HR PRN #2 each PRN Reason: Difficulty breathing Is patient prescribed a controlled substance at d/c from ED?: No Referrals: Zeb Diaz MD [Primary Care Provider] - 1-2 days Time of Disposition: 18:42
[2024-03-21] MEDS: IPRATROPIUM-ALBUTEROL 3 ML NEB INHALATION STA (15:13)
[2024-03-21 15:19] LABS: Basophils % (A) 0 %; Eosinophils # (A) 0.1 k/uL (0-0.7); Eosinophils % (A) 2 %; HCT 38.3 % (39.0-53.0); HGB 13.4 gm/dL (13.0-17.5); Lymphocytes # (A) 0.3 k/uL (1.0-4.8); Lymphocytes % (A) 3 %; MCH 32.4 pg (25.0-35.0); MCV 92.6 fL (80.0-100.0); Mean Platelet Volume 7.9; Monocytes # (A) 0.2 k/uL (0-1.0); Monocytes % (A) 3 %; Neutrophils # (A) 7.4 k/uL (1.3-7.7); Neutrophils % (A) 92 %; Platelet Count 127 k/uL (150-450); RBC 4.13 m/uL (4.30-5.90); WBC 8.1 k/uL (3.8-10.6)
[2024-03-21 15:29] LABS: ALT 33 U/L (4-49); AST 24 U/L (17-59); African American GFR (CKD) >90 (>60 ml/min/1.73 sqM); Albumin 4.2 g/dL (3.5-5.0); Alkaline Phosphatase 90 U/L (38-126); Anion Gap 6 mmol/L; Blood Urea Nitrogen 16 mg/dL (9-20); Calcium 8.9 mg/dL (8.4-10.2); Carbon Dioxide 26 mmol/L (22-30); Chloride 101 mmol/L (98-107); Glucose 106 mg/dL (74-99); Magnesium 1.7 mg/dL (1.6-2.3); Non-African American GFR(CKD) >90 (>60 ml/min/1.73 sqM); Sodium 133 mmol/L (137-145); Total Protein 6.8 g/dL (6.3-8.2)
--- NOTE | 2024-03-21 15:35 | XR ---
EXAMINATION TYPE: XR chest 2V DATE OF EXAM: 03/21/2024 COMPARISON: 04/25/2021 HISTORY: 63 year-old male shortness of breath, difficulty breathing TECHNIQUE: PA and lateral views FINDINGS: Heart normal size. Aorta and pulmonary vasculature within normal limits. No consolidation or pleural effusion. Spinal stimulator array centered along the lower thoracic spinal canal. IMPRESSION: Correlate for underlying COPD. No definite acute process.
[2024-03-21 15:36] LABS: NT-Pro-B-Type Natriuretic Pept 46 pg/mL
[2024-03-21 15:37] LABS: Partial Thromboplastin Time 23.2 sec (22.0-30.0); Prothrombin Time 10.9 sec (10.0-12.5)
[2024-03-21] MEDS: ACETAMINOPHEN TAB 500 MG TAB PO STA (17:28)
--- NOTE | 2024-03-21 18:18 | CT ---
EXAMINATION TYPE: CT brain wo con CT DLP: 1170.4 mGycm, Automated exposure control for dose reduction was used. DATE OF EXAM: 03/21/2024 5:48 PM COMPARISON: None. CLINICAL INDICATION:Male, 63 years old with history of Headache, dizziness, ams TECHNIQUE: Brain: Axial CT images of the brain were obtained with coronal and sagittal reformats created and rev iewed. Contrast used: None. Oral contrast used: None. FINDINGS: Brain: Extra-axial spaces: No abnormal extra-axial fluid collections. Ventricular system: Within normal limits Cerebral parenchyma: No acute intraparenchymal hemorrhage or mass effect. The carey-white junction is well differentiated. Cerebellum: Unremarkable. Mass effect: No evidence of midline shift. Intracranial vasculature: unremarkable Soft tissues: Normal. Calvarium/osseous structures: No depressed skull fracture. Paranasal sinuses and mastoid air cells: Mild to moderate scattered paranasal sinus disease. Visualized orbits: Orbital contents are intact. IMPRESSION: No acute intracranial process.
[2024-03-21] MEDS: IBUPROFEN 600 MG TAB PO STA (19:18)
[2024-03-21] MEDS: predniSONE 50 MG TAB PO STA (19:18)
[2024-03-21 19:24] VITALS: BP 109/63; PULSE 80; RESP 20; TEMP 101.4
== END 2024-03-21 19:23 | disposition home or self-care (01) ==
LOC: EC 13:44
DX: B34.9 Viral infection, unspecified (principal); J98.01 Acute bronchospasm; I45.10 Unspecified right bundle-branch block; Z87.891 Personal history of nicotine dependence
CPT/HCPCS: 36415; 94640; 93005; 85379; 83880; 80053; 83605; 83735; 84484; 85025; 85610; 85730; 87636; 71046; 70450; 99285; J7512